=== PATIENT | female | born 1955 | race Caucasian/White ===

== ENCOUNTER → 2017-03-15 | Outpatient (CLI) | payer OTHER ==
[~2017-03-15] MED LIST: ALLEGRA-D 12 HO1 TER PO; ALLEGRA-D TABLE1 TAB PO; FLEXERIL 1010 MG/TAB PO; MEDROL 4MG DOSPA4 MG PO; MOTRIN800 MG PO; PERCOCET 325 MG1 TA2 PO; PREMARIN 0.60.625 M1 PO; PREMARIN 1.251.25 MG PO; SKELAXIN 800MG800 MG PO; SOMA 350MG350 MG/TAB PO; SOMA PO; TYLENOL 500MG500 MG PO; ULTRAM100 MG PO
== END ==
LOC: MC.RAD 09:00
DX: Z12.31 Encounter for screening mammogram for malignant neoplasm of breast (principal); N64.89 Other specified disorders of breast

== ENCOUNTER → 2017-03-22 | Outpatient (CLI) | payer OTHER | LOC: MC.RAD 09:00 | DX: N63 Unspecified lump in breast (principal); N64.89 Other specified disorders of breast ==

== ENCOUNTER 2019-04-24 11:58 | Emergency (ER) | payer OTHER ==
[~2019-04-24] VITALS: Ht 170.2 cm; Wt 63.6 kg
[2019-04-24 12:01] VITALS: TEMP 98.6
[2019-04-24] MEDS ORDERED: SINGULAIR 110 MG/TAB PO (12:09)
[2019-04-24] MEDS ORDERED: CLARITIN 1010 MG/TAB PO (12:09)
[2019-04-24] MEDS ORDERED: CELEBREX 200MG200 MG PO (12:10)
[2019-04-24] MEDS ORDERED: NEURONTIN300 MG/CAP PO (12:10)
[2019-04-24 12:47] VITALS: BP 145/76; PULSE 72
== END 2019-04-24 12:55 | disposition home or self-care (01) ==
LOC: COL.ER 11:58
DX: T65.891A Toxic effect of other specified substances, accidental (unintentional), initial encounter (principal)

== ENCOUNTER → 2019-09-17 | Outpatient (CLI) | payer MEDICARE, OTHER ==
[~2019-09-17] MED LIST changes: +CELEBREX 200MG200 MG PO; +CLARITIN 1010 MG/TAB PO; +NEURONTIN300 MG/CAP PO; +SINGULAIR 110 MG/TAB PO
== END ==
LOC: COL.RAD 08:04
DX: M51.36 Other intervertebral disc degeneration, lumbar region (principal); M16.12 Unilateral primary osteoarthritis, left hip

== ENCOUNTER 2020-09-27 11:55 | Emergency (ER) | payer MEDICARE, OTHER ==
[~2020-09-27] VITALS: Ht 170.2 cm; Wt 77.3 kg
[2020-09-27 12:09] VITALS: BP 149/70; TEMP 98
[2020-09-27 13:50] VITALS: PULSE 71
== END 2020-09-27 13:50 | disposition home or self-care (01) ==
LOC: COL.ER 11:55
DX: S09.90XA Unspecified injury of head, initial encounter (principal); M79.622 Pain in left upper arm; M25.512 Pain in left shoulder; W10.9XXA Fall (on) (from) unspecified stairs and steps, initial encounter

== ENCOUNTER → 2021-02-27 | Outpatient (CLI) | payer MEDICARE, OTHER | LOC: MC.RAD 13:06 | DX: Z12.31 Encounter for screening mammogram for malignant neoplasm of breast (principal); N63.20 Unspecified lump in the left breast, unspecified quadrant ==

== ENCOUNTER → 2022-12-28 | Outpatient (CLI) | payer MEDICARE, OTHER | LOC: COL.RAD 07:30 | DX: M75.111 Incomplete rotator cuff tear or rupture of right shoulder, not specified as traumatic (principal) ==